=== PATIENT | male | born 1955 | race Caucasian/White ===

== ENCOUNTER → 2016-11-15 | Outpatient (CLI) | payer BC | LOC: OD 07:16 | PROVIDERS: ATTEND Family Medicine | DX: E11.9 Type 2 diabetes mellitus without complications (principal) | CPT/HCPCS: 36415; 82043; 83036 ==

== ENCOUNTER → 2017-05-24 | Outpatient (CLI) | payer BC ==
[2017-05-24 08:45] LABS: ANION GAP 15 (5-19); BLOOD UREA NITROGEN 16 mg/dL (7-20); CALCIUM 10.6 mg/dL (8.4-10.2); CARBON DIOXIDE 25 mmol/L (22-30); CHLORIDE 103 mmol/L (98-107); CHOLESTEROL 137.21 mg/dL (0-200); CREATININE RESULT 0.84 mg/dL (0.52-1.25); Direct HDL 50 mg/dL (>40); GLUCOSE 136 mg/dL (75-110); POTASSIUM 4.5 mmol/L (3.6-5.0); SODIUM 142.9 mmol/L (137-145); TRIGLYCERIDES 80 mg/dL (<150)
[2017-05-24 08:56] LABS: DIRECT LDL 75 mg/dL (<100)
== END ==
LOC: OD 07:14
PROVIDERS: ATTEND Family Medicine
DX: E03.9 Hypothyroidism, unspecified (principal); E11.9 Type 2 diabetes mellitus without complications; E78.5 Hyperlipidemia, unspecified; I10 Essential (primary) hypertension; Z79.899 Other long term (current) drug therapy
CPT/HCPCS: 36415; 80048; 80061; 83036; 84153; 84443

== ENCOUNTER → 2017-11-23 | Outpatient (CLI) | payer BC | LOC: OD 12:27 | PROVIDERS: ATTEND Family Medicine | DX: E11.9 Type 2 diabetes mellitus without complications (principal); Z79.899 Other long term (current) drug therapy | CPT/HCPCS: 36415; 82043; 83036 ==

== ENCOUNTER → 2018-05-21 | Outpatient (CLI) | payer BC ==
[2018-05-21 10:51] LABS: ANION GAP 9 (5-19); BLOOD UREA NITROGEN 11 mg/dL (7-20); CARBON DIOXIDE 30 mmol/L (22-30); CHLORIDE 101 mmol/L (98-107); CHOLESTEROL 126.07 mg/dL (0-200); GLUCOSE 209 mg/dL (75-110); POTASSIUM 4.7 mmol/L (3.6-5.0); SODIUM 139.7 mmol/L (137-145); TRIGLYCERIDES 74 mg/dL (<150)
[2018-05-21 11:02] LABS: DIRECT LDL 69 mg/dL (<100)
== END ==
LOC: OD 09:16
PROVIDERS: ATTEND Family Medicine
DX: E03.9 Hypothyroidism, unspecified (principal); E11.9 Type 2 diabetes mellitus without complications; E78.5 Hyperlipidemia, unspecified; I10 Essential (primary) hypertension; Z79.899 Other long term (current) drug therapy
CPT/HCPCS: 36415; 80048; 80061; 83036; 84153; 84443

== ENCOUNTER → 2018-11-16 | Outpatient (CLI) | payer BC ==
[2018-11-17 11:37] LABS: CREATININE URINE 142.7 mg/dL (Not Estab.); MICROALBUMIN URINE 239.5 ug/mL (Not Estab.)
== END ==
LOC: OD 08:15
PROVIDERS: ATTEND Family Medicine
DX: E11.9 Type 2 diabetes mellitus without complications (principal); Z79.899 Other long term (current) drug therapy
CPT/HCPCS: 36415; 82043; 82570; 83036

== ENCOUNTER → 2019-05-20 | Outpatient (CLI) | payer BC ==
[2019-05-20 10:14] LABS: ANION GAP 12 (5-19); BLOOD UREA NITROGEN 15 mg/dL (7-20); CALCIUM 10.3 mg/dL (8.4-10.2); CARBON DIOXIDE 26 mmol/L (22-30); CHLORIDE 103 mmol/L (98-107); CHOLESTEROL 125.05 mg/dL (0-200); GLUCOSE 138 mg/dL (75-110); POTASSIUM 4.5 mmol/L (3.6-5.0); TRIGLYCERIDES 62 mg/dL (<150)
[2019-05-20 10:25] LABS: DIRECT LDL 75 mg/dL (<100)
== END ==
LOC: OD 08:23
PROVIDERS: ATTEND Family Medicine
DX: E03.9 Hypothyroidism, unspecified (principal); E11.9 Type 2 diabetes mellitus without complications; E78.5 Hyperlipidemia, unspecified; I10 Essential (primary) hypertension; R39.12 Poor urinary stream; Z79.899 Other long term (current) drug therapy
CPT/HCPCS: 36415; 80048; 80061; 83036; 84153; 84443

== ENCOUNTER → 2019-11-14 | Outpatient (CLI) | payer BC ==
[2019-11-15 09:36] LABS: CREATININE URINE 258.1 mg/dL (Not Estab.); MICROALBUMIN URINE 313.9 ug/mL (Not Estab.)
== END ==
LOC: OD 09:42
PROVIDERS: ATTEND Family Medicine
DX: E11.65 Type 2 diabetes mellitus with hyperglycemia (principal); Z79.899 Other long term (current) drug therapy
CPT/HCPCS: 82043; 82570; 83036

== ENCOUNTER → 2020-08-11 | Outpatient (CLI) | payer BC ==
--- NOTE | 2020-08-11 12:27 | RADIOLOGY REPORT (SQ) ---
EXAM DESCRIPTION: CHEST 2 VIEWS IMAGES COMPLETED DATE/TIME: 08/11/2020 10:47 am REASON FOR STUDY: COUGH COMPARISON: None. EXAM PARAMETERS: NUMBER OF VIEWS: two views TECHNIQUE: Digital Frontal and Lateral radiographic views of the chest acquired. RADIATION DOSE: NA LIMITATIONS: none FINDINGS: LUNGS AND PLEURA: No opacities, masses or pneumothorax. No pleural effusion. MEDIASTINUM AND HILAR STRUCTURES: No masses or contour abnormalities. HEART AND VASCULAR STRUCTURES: Mild cardiomegaly with no edgardo pulmonary edema. BONES: No acute findings. HARDWARE: None in the chest. OTHER: No other significant finding. IMPRESSION: Mild cardiomegaly without edgardo pulmonary edema. TECHNICAL DOCUMENTATION: JOB ID: [id number] 2010 [employer]- All Rights Reserved Reading location - IP/workstation name: [email or web address]
== END ==
LOC: RAD 10:20
PROVIDERS: ATTEND Family Medicine
DX: R05 Cough (principal); R06.00 Dyspnea, unspecified
CPT/HCPCS: 71046

== ENCOUNTER 2020-08-31 11:25 | Emergency (ER) | payer BC ==
--- NOTE | 2020-08-31 12:21 | ER Document Report ---
ED Medical Screen (RME) - General Chief Complaint: Shortness Of Breath Stated Complaint: DIZZINESS,SHORT OF BREATH,COUGH Primary Care Provider: MELISA SHARMA MD [Primary Care Provider] - Follow up as needed TRAVEL OUTSIDE OF THE [place] IN LAST 30 DAYS: No - HPI Notes: 08/31/20 12:18 Rapid Medical Exam HPI: 65-year-old male presents to the ER complaining of 8 months of shortness of breath and fatigue. He describes associated pedal edema and orthopnea. Also reports that he had a prior chest x-ray and was told he has an enlarged heart. No official diagnosis of heart failure. No prior MIs or ACS. Patient was sent here from primary care to also make sure he does not have Covid. He was tested in July and was negative. Patient has had no new contacts of Covid that he is aware of. No fevers/chills, nausea vomiting, congestion, loss of taste or smell. He has recently stopped his Trulicity and other diabetic medications due to concern for side effect causing the shortness of breath. Says his blood sugar was in the 100s this morning when he checked it. He does have an ongoing chronic dry cough which he associates with his blood pressure medications. Physical Exam: GENERAL: Well-appearing, well-nourished and in no acute distress. HEAD: Atraumatic, normocephalic. ENT: Moist mucous membranes. RESP: Respirations even and unlabored CV- Regular rate. NEURO: No focal neurological deficits. Moves all extremities spontaneously and on command. My involvement in this patients care was limited to a rapid initial assessment. A comprehensive ED assessment and evaluation of the patient, analysis of test results, treatment, and completion of the medical decision making process will be performed by other ER providers. - Related Data Allergies/Adverse Reactions: dulaglutide [From Trulicity] Allergy (Verified 08/31/20 12:10) Physical Exam - Vital signs Vitals: Temp Pulse Resp BP Pulse Ox 97.7 F 110 H 24 H 132/92 H 95 08/31/20 11:33 08/31/20 11:33 08/31/20 11:33 08/31/20 11:33 08/31/20 11:33 Course - Vital Signs Vital signs: Temp Pulse Resp BP Pulse Ox 97.7 F 110 H 24 H 132/92 H 95 08/31/20 11:33 08/31/20 11:33 08/31/20 11:33 08/31/20 11:33 08/31/20 11:33 Doctor's Discharge - Discharge Referrals: MELISA SHARMA MD [Primary Care Provider] - Follow up as needed
--- NOTE | 2020-08-31 13:01 | RADIOLOGY REPORT (SQ) ---
EXAM DESCRIPTION: CHEST SINGLE VIEW IMAGES COMPLETED DATE/TIME: 08/31/2020 12:48 pm REASON FOR STUDY: sob, pedal edema.cough COMPARISON: 08/11/2020 EXAM PARAMETERS: NUMBER OF VIEWS: One view. TECHNIQUE: Single frontal radiographic view of the chest acquired. RADIATION DOSE: NA LIMITATIONS: None. FINDINGS: LUNGS AND PLEURA: Basilar atelectasis and small effusions not significantly changed from p rior study. MEDIASTINUM AND HILAR STRUCTURES: No masses. Contour normal. HEART AND VASCULAR STRUCTURES: Stable in appearance. BONES: No acute findings. HARDWARE: None in the chest. OTHER: No other significant finding. IMPRESSION: No interval change in the chest. Persistent small effusions and basilar airspace diseas e possibly mild basilar edema. TECHNICAL DOCUMENTATION: JOB ID: [id number] [employer]- All Rights Reserved Reading location - IP/workstation name: [email or web address]
[2020-08-31 13:23] LABS: ABSOLUTE BASOPHILS # (AUTO) 0.1 10^3/uL (0.0-0.2); ABSOLUTE EOSINOPHILS # (AUTO) 0.1 10^3/uL (0.0-0.6); ABSOLUTE LYMPHOCYTES (AUTO) 1.9 10^3/uL (0.5-4.7); ABSOLUTE MONOCYTES (AUTO) 0.7 10^3/uL (0.1-1.4); ABSOLUTE NEUT (AUTO) 7.3 10^3/uL (1.7-8.2); BASOPHILS % (AUTO) 0.9 % (0-2); EOSINOPHILS % (AUTO) 0.8 % (0-6); HEMATOCRIT 42.7 % (37.9-51.0); LYMPHOCYTES % (AUTO) 18.9 % (13-45); MEAN CORPUSCULAR HEMOGLOBIN 27.3 pg (27.0-33.4); MEAN CORPUSCULAR HGB CONC 32.8 g/dL (32.0-36.0); MEAN CORPUSCULAR VOLUME 83 fl (80-97); MONOCYTES % (AUTO) 6.5 % (3-13); PLATELET COUNT 229 10^3/uL (150-450); RED BLOOD COUNT 5.12 10^6/uL (4.35-5.55); RED CELL DISTRIBUTION WIDTH 14.9 % (11.5-14.0); SEGMENTED NEUTROPHILS % (AUTO) 72.9 % (42-78); TOTAL CELLS COUNTED % (AUTO) 100 %
[2020-08-31 13:46] LABS: ALBUMIN 4.4 g/dL (3.5-5.0); ALKALINE PHOSPHATASE 91 U/L (38-126); ANION GAP 8 (5-19); ASPARTATE AMINO TRANSFERASE 40 U/L (17-59); BILIRUBIN,DIRECT 0.3 mg/dL (0.0-0.4); BILIRUBIN,TOTAL 0.7 mg/dL (0.2-1.3); BLOOD UREA NITROGEN 14 mg/dL (7-20); CALCIUM 9.5 mg/dL (8.4-10.2); CARBON DIOXIDE 27 mmol/L (22-30); CHLORIDE 103 mmol/L (98-107); GLUCOSE 160 mg/dL (75-110); POTASSIUM 4.5 mmol/L (3.6-5.0); TOTAL PROTEIN 7.6 g/dL (6.3-8.2)
[2020-08-31 13:57] LABS: NT PRO BNP 2350 pg/mL (<125)
[2020-08-31 13:59] LABS: TROPONIN I < 0.012 ng/mL
--- NOTE | 2020-08-31 14:49 | EKG REPORT ---
SEVERITY:- ABNORMAL ECG - SINUS TACHYCARDIA CONSIDER ANTEROSEPTAL INFARCT BORDERLINE PROLONGED QT INTERVAL : Confirmed by: Jerzy Napoles 31-Aug-2020 14:48:33
--- NOTE | 2020-08-31 17:22 | ER Document Report ---
ED General - General Chief Complaint: Shortness Of Breath Stated Complaint: DIZZINESS,SHORT OF BREATH,COUGH Time Seen by Provider: 08/31/20 16:57 Primary Care Provider: MELISA SHARMA MD [Primary Care Provider] - Follow up as needed TRAVEL OUTSIDE OF THE [place] IN LAST 30 DAYS: No - HPI Notes: Patient is a 65-year-old male who presents to the emergency department for evaluation. He has had increased shortness of breath with exertion. He complains of paroxysmal nocturnal dyspnea and orthopnea, he has to sleep in a recliner now at home. He has had some ankle edema. His symptoms have all been going on since summer in the beginning of July. He denies any associated ch est pain or chest tightness. He has been taking his medications as prescribed. He had a chest x-ray ordered by his primary care provider in the middle of the month which showed "a big heart" that he thought he should be brought here for evaluation of possible congestive heart failure. The patient denies any history of arrhythmia or CAD. He does not currently see a project hire. - Related Data Allergies/Adverse Reactions: dulaglutide [From [employer]] Allergy (Verified 08/31/20 12:10) Home Medications: Amlodipine, Aspirin, Trulicity, Valsartan, Levothyroxine Past Medical History - General Information source: Patient - Social History Smoking Status: Never Smoker Drug Abuse: None Family History: Malignancy - Past Medical History Cardiac Medical History: Reports: Hx Hypercholesterolemia, Hx Hypertension Endocrine Medical History: Reports: Hx Diabetes Mellitus Type 2 Review of Systems - Review of Systems Constitutional: No symptoms reported EENT: No symptoms reported Cardiovascular: See HPI Respiratory: No symptoms reported Gastrointestinal: No symptoms reported Genitourinary: No symptoms reported Musculoskeletal: No symptoms reported Skin: No symptoms reported Neurological/Psychological: No symptoms reported Physical Exam - Vital signs Vitals: Temp Pulse Resp BP Pulse Ox 97.7 F 110 H 24 H 132/92 H 95 08/31/20 11:33 08/31/20 11:33 08/31/20 11:33 08/31/20 11:33 08/31/20 11:33 - Notes Notes: Vital signs reviewed, please refer to chart. Head is normocephalic, atraumatic. Pupils equal round, reactive to light. Neck is supple without meningismus. Heart is regular rate and rhythm. Lungs are clear to auscultation bilaterally. Abdomen is soft, nontender, normoactive bowel sounds throughout. Extremities without cyanosis, clubbing. 1+ pitting edema at the ankles noted. Psterior calves are nontender. Peripheral pulses are equal. Skin is warm and dry. Patient is awake, alert, neurological exam is nonfocal. Course - Re-evaluation Re-evalutation: 08/31/20 17:23 Patient presents emergency department for evaluation. I did review his prior films as well as his presentation here today. He is not hypoxic, he was mildly tachycardic on arrival. His x-ray back in the middle of July showed bibasilar effusions and findings consistent with likely heart failure. This persist. His work-up here shows an elevated proBNP. His troponin and EKG shows no signs of significant acute ischemia or infarction. I believe this patient does not fact have congestive heart failure, but I do not believe he needs acute admission to the hospital. I will discuss this with our on-call project hire. 08/31/20 17:[address] Joseph, on-call project hire. He agrees to outpatient management seems appropriate, as he can see him closely in the office. 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 He advises discontinuation of the Norvasc, starting Toprol-XL 25 as well as Lasix 20 mg daily. These doses ar e ordered here. 08/31/20 17:52 Findings were explained to the patient, he was amenable to outpatient follow-up. He is to return to the ED with worsening. - Vital Signs Vital signs: Temp Pulse Resp BP Pulse Ox 97.7 F 110 H 24 H 132/92 H 98 08/31/20 11:33 08/31/20 11:33 08/31/20 11:33 08/31/20 11:33 08/31/20 17:00 - Laboratory Results Result Diagrams: 08/31/20 13:01 08/31/20 13:01 Laboratory Results Interpreted: 08/31/20 08/31/20 08/31/20 13:01 13:01 13:01 RDW 14.9 H Glucose 160 H NT-Pro-B Natriuret Pep 2350 H Critical Laboratory Results Reviewed: No Critical Results - Radiology Results Radiology Results Interpreted: 08/31/20 17:24 Chest X-Ray 08/31/20 12:17 IMPRESSION: No interval change in the chest. Persistent small effusions and basilar airspace disease possibly mild basilar edema. Critical Radiology Results Reviewed: No Critical Results - EKG Interpretation by Me Additional EKG results interpreted by me: 08/31/20 17:52 Sinus tachycardia with a rate of 103 bpm. Normal axis. IVCD. Borderline prolonged QT interval. Nonspecific ST changes, but no acute elevation or depression concerning for infarction or ischemia. No old studies available for comparison. Discharge - Discharge Clinical Impression: Congestive heart failure Qualifiers: Heart failure type: unspecified Heart failure chronicity: unspecified Qualified Code(s): I50.9 - Heart failure, unspecified Condition: Stable Disposition: HOME, SELF-CARE Instructions: Congestive Heart Failure ([facility]) Additional Instructions: Your findings today are most consistent with congestive heart failure. You will need further testing, including an echocardiogram, to determine the extent and reason for this finding. Please stop taking your amlodipine/Norvasc. You are to start taking the Toprol and Lasix as directed, starting tomorrow, as you were given your first dose today. Follow-up with Dr. Joseph, cardiology, his office should be calling you shortly for a close follow-up appointment. If you do not hear from his office in the next 24 hours, please contact them for follow-up. If you develop chest pain, worsening difficulty breathing, worsened edema, or any other new or concerning symptoms, please return immediately to the emergency department for evaluation. Prescriptions: Furosemide [Lasix 20 mg Tablet] 20 mg PO QAM #30 tablet Metoprolol Succinate [Toprol Xl 25 mg Tab.sr] 25 mg PO DAILY #30 tab.sr.24h Referrals: MELISA SHARMA MD [Primary Care Provider] - Follow up as needed DOUGLAS JOSEPH MD [ACTIVE STAFF] - Follow up as needed
[2020-08-31] MEDS ORDERED: FUROSEMIDE 20 MG TABLET PO ONE (17:30)
[2020-08-31] MEDS ORDERED: METOPROLOL SUCCINATE 25 MG TAB.SR.24H PO ONE (17:30)
[2020-08-31 18:23] VITALS: BP 127/100
== END 2020-08-31 18:23 | disposition home or self-care (01) ==
LOC: ER 11:25
DX: I50.9 Heart failure, unspecified (principal); R06.02 Shortness of breath; R06.09 Other forms of dyspnea; R60.0 Localized edema; R42 Dizziness and giddiness; R05 Cough; R00.0 Tachycardia, unspecified; I10 Essential (primary) hypertension; E11.9 Type 2 diabetes mellitus without complications
CPT/HCPCS: 36415; 71045; 80053; 83880; 84484; 85025; 93005; 93010; 99285